=== PATIENT | female | born 1950 | race Caucasian/White ===

== ENCOUNTER 2019-05-17 14:07 | Emergency (ER) | payer OTHER ==
[~2019-05-17] VITALS: Ht 160 cm; Wt 60.0 kg
[~2019-05-17 14:07] MED LIST: BEN25 PO; PRED20TA PO; TRAM50TA2 PO
[2019-05-17 14:18] VITALS: Ht 160 cm; Wt 60.0 kg
[2019-05-17 16:58] VITALS: BP 114/67; PULSE 76; RESP 16
== END 2019-05-17 16:58 | disposition home or self-care (01) ==
LOC: E/R 14:07
DX: I10 Essential (primary) hypertension (principal); F17.210 Nicotine dependence, cigarettes, uncomplicated
CPT/HCPCS: 71045; 80048; 84484; 85025; 93005